=== PATIENT | female | born 1980 | race Caucasian/White ===

== ENCOUNTER 2024-12-19 12:56 | Emergency (ER) | payer OTHER, SELFPAY ==
[2024-12-19] VITALS (8 sets, daily range): BP systolic 109–135; BP diastolic 74–89; BMI 23.1
[2024-12-19] MEDS: NSS 1000 IV ×2 (13:59→16:44)
[2024-12-19] MEDS: TORADOL 15 MG IV ×2 (14:00→16:44)
[2024-12-19 14:09] LABS: Hematocrit 34.1 % (37.0-47.0); Hemoglobin 11.9 g/dL (12.0-16.0); Mean Corp Hgb Conc. 34.9 g/dL (33.0-37.0); Mean Corpuscular Volume 90.2 fL (81.0-99.0); Nucleated Red Blood Cells % 0 %; Platelet Count 308 10^3/uL (130-400); Red Cell Dist. Width 11.9 % (11.5-14.5)
[2024-12-19] MEDS: ZOFRAN 4 MG IV (14:09)
[2024-12-19] MEDS: DILAUDID 0.5 MG IV ×2 (14:26→16:43)
[2024-12-19 14:36] LABS: HCG, Serum Qualitative Screen Negative
[2024-12-19 14:39] LABS: ALT (SGPT) 24 U/L (0-35); AST (SGOT) 22 U/L (14-36); Albumin 4.2 g/dl (3.5-5.0); Alkaline Phosphatase 75 U/L (38-126); Blood Urea Nitrogen 24 mg/dl (7-17); Calcium 9.6 mg/dl (8.4-10.2); Carbon Dioxide 23 mmol/L (22-30); Chloride 108 mmol/L (98-107); Estimated Creatinine Clearance 66 ml/min; Glucose 98 mg/dl (70-99); Lipase 95 U/L (23-300); Potassium 3.8 mmol/L (3.5-5.1); Sodium 138 mmol/L (135-145); Total Protein 6.4 g/dl (6.3-8.2); eGFR > 60.00
[2024-12-19 14:50] LABS: Urine Character Clear (Clear)
--- NOTE | 2024-12-19 14:52 | ED.GENMED ---
Addendum entered and electronically signed by Tyler Leung Jr., PA-C 12/23/24 08:17:
Patient's culture results were faxed to [facility]. Phone number is [phone].
Original Note:
History of Present Illness
<Tyler Leung Jr., PA-C - Last Filed: 12/21/24 21:39>
General
Chief Complaint: Urinary Symptoms
Source: patient
Exam Limitations: none
Time Seen by Provider: 12/19/24 13:32
Nursing documentation reviewed up to this point in time: agreed with
History of Present Illness
History of Present Illness:
44-year-old female past medical history of asthma previous kidney stones presenting to the emergency department today with concerns of right side abdominal pain and rapidly progressing since yesterday. Had recent kidney stone procedure and stent
placed 2 weeks ago at [facility]. She claims that she was septic at the time. She was on IV antibiotics and was discharged on Keflex. She has a follow-up appointment there tomorrow. Denies any specific fevers at this point does have
nausea no vomiting no diarrhea
Past History
<Tyler Leung Jr., PA-C - Last Filed: 12/21/24 21:39>
Past History
ED Past Medical History: Asthma, GERD, Psychiatric (Anxiety/depression, PTSD) and Other (IBS, peripheral neuropathy, PUD)
ED Past Surgical History: None
Social History
Tobacco: Smoker
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
Drug: None
Living: alone
Employment: Employed
Review of Systems
<Tyler Leung Jr., PA-C - Last Filed: 12/21/24 21:39>
Review of Systems
Allergies reviewed?: Yes
All Other Systems: ROS reviewed and negative except as documented in HPI and ROS
Phy Exam
<Tyler Leung Jr., PA-C - Last Filed: 12/21/24 21:39>
Physical Exam
Physical Exam:
GENERAL: Alert , in no apparent distress
EYE: pupils equal and reactive
NECK: Supple, no significant adenopathy.
ENT: o/p clr, mmm.
CARDIAC: Regular rate and rhythm .
LUNGS: Clear breath sounds bilaterally, no acute respiratory distress, no wheezes/rales/rhonchi
ABDOMEN: Tenderness palpation throughout the right side of the abdomen.
NEUROLOGICAL: Alert and oriented, no focal neuro deficits
SKIN: Warm and dry, skin intact.
MUSCULOSKELETAL: No edema, well perfused.
PSYCH: Normal and appropriate interaction.
Course
<Tyler Leung Jr. AKChelsea - Last Filed: 12/21/24 21:39>
Orders/Labs/Results
Orders:
Orders
12/19/24 13:45
0.9% Sodium Chloride 1000 ml [Nss] 1,000 ml IV BOLUS
Ketorolac [Toradol] 15 mg IV NOW STA
12/19/24 13:46
CT Abd/Pel (IV only)-DH only Urgent
Comment:
Reason For Exam: diffuse abd pain, ureteral stent 2 weeks ago R
Test Result ONCE
12/19/24 13:53
Complete Blood Count/With Diff Urgent
Comprehensive Metabolic Panel Urgent
HCG, Serum Qualitative Screen Urgent
Lactic Acid Urgent
Lipase Urgent
12/19/24 13:56
Urinalysis Reflex To Culture Urgent
Date Specimen was Collected: 12/19/24
Time Specimen was Collected: 13:55
Urine Microscopic Reflex Cult Urgent
Urine Culture Urgent
CONRAD Source: U
Specimen Description:
Date Specimen was Collected: 12/19/24
Time Specimen was Collected: 13:55
12/19/24 14:09
Ondansetron Injectable [Zofran] 4 mg IV NOW STA
12/19/24 14:22
HYDROmorphone [Dilaudid] 0.5 mg IV NOW STA
12/19/24 15:49
CefTRIAXone [Rocephin] 2,000 mg IV NOW STA
12/19/24 15:55
Sterile Water [Sterile Water For Injection] 20 ml .ROUTE .STK-MED
12/19/24 16:02
Blood Culture Q30M
CONRAD Source: Blood/Venous
Specimen Description:
12/19/24 16:25
Blood Culture Q30M
CONRAD Source: Blood/Venous
Specimen Description:
12/19/24 16:36
0.9% Sodium Chloride 1000 ml [Nss] 1,000 ml IV BOLUS
HYDROmorphone [Dilaudid] 0.5 mg IV NOW STA
12/19/24 16:37
Ketorolac [Toradol] 15 mg IV NOW STA
12/19/24 18:29
Acetaminophen [Tylenol] 650 mg .ROUTE .STK-MED ONE
12/19/24 18:30
Acetaminophen [Tylenol] 650 mg PO NOW STA
Abnormal Lab Results
12/19/24 12/19/24
13:53 13:56
WBC 14.7 H 10^3/uL
(4.8-10.8)
RBC 3.78 L 10^6/uL
(4.20-5.40)
Hgb 11.9 L g/dL
(12.0-16.0)
Hct 34.1 L %
(37.0-47.0)
MCH 31.5 H pg
(27.0-31.0)
Abs Immat Gran (auto) 0.1 H 10^3/uL
(0-0.05)
Absolute Neuts (auto) 12.3 H 10^3/uL
(1.4-6.5)
Absolute Lymphs (auto) 1.1 L 10^3/uL
(1.2-3.4)
Absolute Monos (auto) 0.9 H 10^3/uL
(0.1-0.6)
Neutrophils % 83.7 H %
(42.2-75.2)
Lymphocytes % 7.2 L %
(20.5-51.1)
Chloride 108 H mmol/L
(98-107)
BUN 24 H mg/dl
(7-17)
Ur Occult Blood Reflex 4+ A
(Negative)
Leukocyte Esterase Rfl 3+ A
(Negative)
Urine RBC 26-30 A /HPF
(0-2)
Urine WBC (Reflex) 40-50 A /HPF
(0-5)
Urine Bacteria (Reflex) Many A
(Negative)
Urine Albumin (Reflex) 2+ A
(Neg - Trace)
12/19/24 13:53
12/19/24 13:53
Vital Signs
Initial and Last Documented VS:
Initial Vital Signs
Temp Pulse Resp BP Pulse Ox
98.7 F 128 20 124/84 97
12/19/24 12:59 12/19/24 12:59 12/19/24 12:59 12/19/24 12:59 12/19/24 12:59
Last Documented Vital Signs
Temp Pulse Resp BP Pulse Ox
101.8 F H 110 18 114/82 97
12/19/24 18:00 12/19/24 18:00 12/19/24 18:00 12/19/24 18:25 12/19/24 17:39
<Artur Valle PA-C - Last Filed: 12/20/24 11:59>
Orders/Labs/Results
Orders:
Orders
12/19/24 13:45
0.9% Sodium Chloride 1000 ml [Nss] 1,000 ml IV BOLUS
Ketorolac [Toradol] 15 mg IV NOW STA
12/19/24 13:46
CT Abd/Pel (IV only)-DH only Urgent
Comment:
Reason For Exam: diffuse abd pain, ureteral stent 2 weeks ago R
Test Result ONCE
12/19/24 13:53
Complete Blood Count/With Diff Urgent
Comprehensive Metabolic Panel Urgent
HCG, Serum Qualitative Screen Urgent
Lactic Acid Urgent
Lipase Urgent
12/19/24 13:56
Urinalysis Reflex To Culture Urgent
Date Specimen was Collected: 12/19/24
Time Specimen was Collected: 13:55
Urine Microscopic Reflex Cult Urgent
Urine Culture Urgent
CONRAD Source: U
Specimen Description:
Date Specimen was Collected: 12/19/24
Time Specimen was Collected: 13:55
12/19/24 14:09
Ondansetron Injectable [Zofran] 4 mg IV NOW STA
12/19/24 14:22
HYDROmorphone [Dilaudid] 0.5 mg IV NOW STA
12/19/24 15:49
CefTRIAXone [Rocephin] 2,000 mg IV NOW STA
12/19/24 15:55
Sterile Water [Sterile Water For Injection] 20 ml .ROUTE .STK-MED
12/19/24 16:02
Blood Culture Q30M
CONRAD Source: Blood/Venous
Specimen Description:
12/19/24 16:25
Blood Culture Q30M
CONRAD Source: Blood/Venous
Specimen Description:
12/19/24 16:36
0.9% Sodium Chloride 1000 ml [Nss] 1,000 ml IV BOLUS
HYDROmorphone [Dilaudid] 0.5 mg IV NOW STA
12/19/24 16:37
Ketorolac [Toradol] 15 mg IV NOW STA
12/19/24 18:29
Acetaminophen [Tylenol] 650 mg .ROUTE .STK-MED ONE
12/19/24 18:30
Acetaminophen [Tylenol] 650 mg PO NOW STA
Abnormal Lab Results
12/19/24 12/19/24
13:53 13:56
WBC 14.7 H 10^3/uL
(4.8-10.8)
RBC 3.78 L 10^6/uL
(4.20-5.40)
Hgb 11.9 L g/dL
(12.0-16.0)
Hct 34.1 L %
(37.0-47.0)
MCH 31.5 H pg
(27.0-31.0)
Abs Immat Gran (auto) 0.1 H 10^3/uL
(0-0.05)
Absolute Neuts (auto) 12.3 H 10^3/uL
(1.4-6.5)
Absolute Lymphs (auto) 1.1 L 10^3/uL
(1.2-3.4)
Absolute Monos (auto) 0.9 H 10^3/uL
(0.1-0.6)
Neutrophils % 83.7 H %
(42.2-75.2)
Lymphocytes % 7.2 L %
(20.5-51.1)
Chloride 108 H mmol/L
(98-107)
BUN 24 H mg/dl
(7-17)
Ur Occult Blood Reflex 4+ A
(Negative)
Leukocyte Esterase Rfl 3+ A
(Negative)
Urine RBC 26-30 A /HPF
(0-2)
Urine WBC (Reflex) 40-50 A /HPF
(0-5)
Urine Bacteria (Reflex) Many A
(Negative)
Urine Albumin (Reflex) 2+ A
(Neg - Trace)
12/19/24 13:53
12/19/24 13:53
Vital Signs
Initial and Last Documented VS:
Initial Vital Signs
Temp Pulse Resp BP Pulse Ox
98.7 F 128 20 124/84 97
12/19/24 12:59 12/19/24 12:59 12/19/24 12:59 12/19/24 12:59 12/19/24 12:59
Last Documented Vital Signs
Temp Pulse Resp BP Pulse Ox
101.8 F H 110 18 114/82 97
12/19/24 18:00 12/19/24 18:00 12/19/24 18:00 12/19/24 18:25 12/19/24 17:39
<Tyler Leung Jr., PA-C - Last Filed: 12/21/24 21:39>
MDM/Problems Addressed
MDM/Problems Addressed:
44-year-old female presenting to the emergency department today with concerns of right-sided abdominal pain. Recent history of ureteral stent 2 weeks ago. On arrival patient tachycardic which did improve after receiving pain medication fluids.
White count of 14.7. Heart rate still mildly elevated was given fluids as well as started on IV antibiotic concerning her urinalysis appears to be consistent with infection. CT scan showing potential pyelonephritis nephroureteral stent in place.
Mild right hydro considering signs of urinary tract infection and recent intervention plan to transfer to [facility]..
<Tyler Leung Jr., PA-C - Last Filed: 12/21/24 21:39>
*Pulse Oximetry
SaO2: 98
Oxygen Mode of Delivery: Room air
<Artur Valle PA-C - Last Filed: 12/20/24 11:59>
*Pulse Oximetry
Patient hypoxic: no
*Critical Care Note
Total Time (30-74mins, 75-104mins- exclusive of procedures): Not Applicable
<Artur Valle PA-C - Last Filed: 12/20/24 11:59>
Update Note
Update Note:
December 20, 2024 7:47 AM: Received notification from micro lab that patient has positive aerobic and anaerobic blood culture bottles with gram-negative bacilli. Patient was transferred to [facility], culture report was faxed to their facility.
ED Attending Note
<Tyler Leung Jr., PA-C - Last Filed: 12/21/24 21:39>
-
Portions of this chart may have been created with voice recognition software.� Occasional wrong word or��sound alike� substitutions may have occurred due to the inherent limitations of voice recognition software.
Discharge Plan
Departure
Patient Disposition: Acute Care Hospital
Date of Disposition: 12/19/24
Time of Disposition: 16:21
Condition: Good
Covid-19: Not Applicable
Discharge Problem:
Pyelonephritis, UTI (urinary tract infection)
Prescriptions:
No Action
clonazepam 0.5 mg Tablet
0.25 mg PO DAILYPRN PRN (Reason: anxiety)
tamsulosin 0.4 mg Capsule
0.4 mg PO .SEE BELOW
Patient Comments:
12/19/2024, pt. stopped taking this med. on Monday (12/15/2024) b/c it was making her dizzy; prescribed for pt. to take 1 capsule daily.
pantoprazole 40 mg Tablet,Delayed Release (Dr/Ec)
40 mg PO DAILY
ibuprofen [Advil] 200 mg Tablet
800 mg PO DAILYPRN PRN (Reason: mild pain)
atomoxetine 40 mg Capsule
40 mg PO DAILY
duloxetine 60 mg Capsule,Delayed Release(Dr/Ec)
60 mg PO DAILY
lisdexamfetamine 20 mg Capsule
20 mg PO DAILY
Referrals:
Radha Hart MD [Family Provider, Family Practice]
Hospital Transfer
Other hospital: [facility]
I certify that the patient requires transfer: Yes
Discussed case with accepting physician: Dr. Cruz
Reason for transfer: medical necessity, availability of service and other
Interventions
Interventions:
*Risk Screen - Suicide Last Done: 12/19/24 12:59
*General Assessment Last Done: 12/19/24 14:04
*Neglect/Abuse Screening Last Done: 12/19/24 12:59
*ED- Fall Risk Assessment Last Done: 12/19/24 13:33
*ED COVID-19 Vaccine History Last Done: 12/19/24 14:03
*Nursing Disposition Last Done: 12/19/24 17:39
ED-Female Genitourinary Assessment Last Done: 12/19/24 13:35
Discharge Date and Time
Discharge Date/Time: 12/19/24 18:56
Print Language: [id number]
[2024-12-19 15:08] LABS: Urine Squamous Cell 16-20 /LPF (Few); Urine Urothelial Cell 0-2 /LPF (FEW)
[2024-12-19 15:09] LABS: Urine White Cell 40-50 /HPF (0-5)
[2024-12-19 15:10] LABS: Urine Red Blood Cell 26-30 /HPF (0-2)
[2024-12-19] MEDS: ROCEPHIN 2000 MG IV (16:28)
[2024-12-19] MEDS: TYLENOL 650 MG PO (18:31)
== END 2024-12-19 18:56 | disposition short-term general hospital (02) ==
LOC: EMR 12:56
PROVIDERS: Physician Assistant; EMERGENCY PHYSICIAN Emergency Medicine; FAMILY PHYSICIAN Family Medicine
DX: N12 Tubulo-interstitial nephritis, not specified as acute or chronic (principal); J45.909 Unspecified asthma, uncomplicated; F17.200 Nicotine dependence, unspecified, uncomplicated; Z87.11 Personal history of peptic ulcer disease; Z87.442 Personal history of urinary calculi; Z96.0 Presence of urogenital implants
CPT/HCPCS: 96374; 96375; 96376; 96361; 99284; 74177; 80053; 81003; 81015; 83605; 83690; 84703; 85025; 87040; 87077; 87086; 87154; 87186; 87205; Q9967